=== PATIENT | female | born 1980 | race Two or more races ===

== ENCOUNTER 2018-05-18 12:21 | Emergency (ER) | payer BC, OTHER ==
[~2018-05-18] VITALS: Ht 147.3 cm; Wt 47.0 kg
[~2018-05-18 12:21] MED LIST: DOCU240C31 PO; HYDR-3240 PO; IBUP-1222 PO; No meds per pt.; PAIN MEDICATION PO; [UNRECOGNIZED DRUG - CODE] PO
[2018-05-18] MEDS ORDERED: METHOCARBAMOL 750 MG TABLET ONE (13:55)
[2018-05-18] MEDS ORDERED: KETOROLAC 30 MG/1 ML ONE (13:55)
[2018-05-18] MEDS ORDERED: METHOCARBAMOL 750 MG TABLET PO ONE (14:00)
[2018-05-18] MEDS ORDERED: KETOROLAC 30 MG/1 ML IM ONE (14:00)
[2018-05-18 14:37] VITALS: BP 120/69
== END 2018-05-18 15:10 | disposition home or self-care (01) ==
LOC: ED 14:58
DX: S39.012A Strain of muscle, fascia and tendon of lower back, initial encounter (principal); V49.09XA Driver injured in collision with other motor vehicles in nontraffic accident, initial encounter; Y93.89 Activity, other specified; Y92.89 Other specified places as the place of occurrence of the external cause; Y99.8 Other external cause status
CPT/HCPCS: 72072; 72110; 96372; 99283; J1885

== ENCOUNTER 2020-08-21 09:37 | Inpatient (IN) | payer BC ==
[~2020-08-21] VITALS: Ht 147.3 cm; Wt 48.6 kg
[~2020-08-21 09:37] MED LIST changes: +HYDR-2214 PO; -HYDR-3240 PO
--- NOTE | 2020-08-21 10:21 | NUR ---
BP CUFF, PULSE OX IN PLACE. IV PLACED BY MEDIC STUDENT, LABS INCLUDING BC X 1 DRAWN WITH START. PT REPORTS OF COUGH, FEVER, N/V, LLQ ABD PAIN FOR THREE WEEKS. TESTED FOR FLU AND COVID ON MON, NEG FLU RESULT AND NO COVID RESULT YET. ISO CART PLACED AT DOORWAY. PT REPORTS TWO COVID VACCINES, WITH LAST 07/20 AND SX DEVELOPING DAYS AFTERWARDS.
[2020-08-21] MEDS ORDERED: MORPHINE SULFATE 4 MG/ML, 1ML IVPush PRN ×2 (10:30→11:00)
[2020-08-21] MEDS ORDERED: ACETAMINOPHEN 500 MG TABLET PO ONE (10:30)
[2020-08-21] MEDS ORDERED: MORPHINE SULFATE 4 MG/ML, 1ML ONE (10:36)
[2020-08-21] MEDS ORDERED: ACETAMINOPHEN 500 MG TABLET ONE (10:36)
[2020-08-21] MEDS ORDERED: ONDANSETRON 2MG/ML, 2ML ONE ×2 (10:36→14:36)
--- NOTE | 2020-08-21 10:44 | NUR ---
PT MEDICATED PER ERP ORDER FOR N/V, LLQ ABD PAIN. NS BOLUS INFUSING. PT AWARE OF NEED FOR UA, URINE CUP PROVIDED, PT WITH CALL LIGHT. LAB IN TO DRAW.
[2020-08-21] MEDS ORDERED: SODIUM CHLORIDE 0.9% 1,000ML IVBOLUS ONE (11:00)
[2020-08-21 11:11] LABS: BASOPHILS % (AUTO) 0 % (0-1); EOSINOPHILS % (AUTO) 1 % (1-7); LYMPHOCYTES % (AUTO) 8 % (22-44); MEAN CORPUSCULAR HGB CONC 33.3 g/dL (32.4-35.8); MEAN PLATELET VOLUME 8.8 fL (7.4-10.4); MONOCYTES % (AUTO) 9 % (2-9); NEUTROPHILS % (AUTO) 82 % (42-75); PLATELET COUNT 275 x10^3/uL (130-400); RED BLOOD COUNT 4.04 x10^6/uL (3.82-5.3); RED CELL DISTRIBUTION WIDTH 12.9 % (9.6-15.2)
[2020-08-21 11:21] LABS: ANION GAP 7 mmol/L (5-15); CHLORIDE 103 mmol/L (98-107)
[2020-08-21 11:25] LABS: ALANINE AMINOTRANSFERASE 65 U/L (12-78); ALKALINE PHOSPHATASE 283 U/L (45-117); BILIRUBIN,TOTAL 0.7 mg/dL (0.2-1.0); CREATININE 1.25 mg/dL (0.55-1.02); TOTAL PROTEIN 8.2 g/dL (6.4-8.2)
[2020-08-21 11:30] LABS: MD SCAN
--- NOTE | 2020-08-21 11:40 | NUR ---
BREAK RN: PT IN CT.
[2020-08-21] MEDS ORDERED: OMNIPAQUE 350 MG/ML, 100ML BOTTLE ONE (11:47)
[2020-08-21 11:49] LABS: MICROSCOPIC AUTO
--- NOTE | 2020-08-21 12:54 | NUR ---
ROCEPHIN INFUSING PER ERP ORDER. PT STATES PAIN TOLERABLE, DECLINES PAIN MEDS AT THIS TIME. CALL LIGHT WITHIN REACH.
[2020-08-21] MEDS ORDERED: CEFTRIAXONE 1,000 MG in DEXTROSE 5% 50 ML IVPB ONE ×2 (13:00→18:30)
[2020-08-21] MEDS ORDERED: LIDOCAINE-MPF 2% ,5ML ONE (13:03)
[2020-08-21] MEDS ORDERED: FENTANYL PF 100 MCG/2ML ONE (13:05)
[2020-08-21] MEDS ORDERED: MIDAZOLAM 1 MG/ML, 2ML ONE (13:05)
[2020-08-21] MEDS ORDERED: OMNIPAQUE 350 MG/ML, 50 ML BOTTLE ONE (13:13)
[2020-08-21] MEDS ORDERED: LABETALOL 5MG/ML, 20ML IV PRN (13:30)
[2020-08-21] MEDS ORDERED: hydrALAzine 20 MG/ML, 1ML IV PRN (13:30)
[2020-08-21] MEDS ORDERED: FENTANYL PF 100 MCG/2ML IV PRN (13:30)
[2020-08-21] MEDS ORDERED: ONDANSETRON 2MG/ML, 2ML IVPush PRN ×2 (13:30→18:30)
[2020-08-21] MEDS ORDERED: EPHEDRINE 50 MG/ML, 1ML IVPush PRN (13:30)
[2020-08-21] MEDS ORDERED: ACETAMINOPHEN 325 MG TABLET PO PRN ×2 (13:30→18:30)
[2020-08-21] MEDS ORDERED: OXYcodone 5 MG/5 ML ORAL.SOL UDC PO PRN (13:30)
[2020-08-21] MEDS ORDERED: HYDROmorphone 1 MG/ML, 1ML INJ IVPush PRN (13:30)
[2020-08-21] MEDS ORDERED: PROMETHAZINE 25 MG/ML, 1ML IVPush PRN (13:30)
--- NOTE | 2020-08-21 13:31 | NUR ---
REPORT TO OR. RAPID COVID ORDERED/COLLECTED/WALKED TO LAB.
[2020-08-21] MEDS ORDERED: CHLORHEXIDINE 15 ML UDC PO ONE (14:00)
[2020-08-21] MEDS ORDERED: CHLORHEXIDINE 15 ML UDC ONE (14:02)
[2020-08-21] MEDS ORDERED: DEXAMETHASONE 4 MG/ML, 1ML ONE ×2 (14:36)
[2020-08-21] MEDS ORDERED: PROPOFOL 10 MG/ML, 20ML ONE (14:36)
[2020-08-21] MEDS ORDERED: SUCCINYLCHOLINE 20 MG/ML, 10ML ONE (14:36)
[2020-08-21] MEDS ORDERED: OMNIPAQUE 350 MG/ML, 50 ML BOTTLE IV ONE (14:40)
[2020-08-21 16:30] VITALS: BP 102/66
[2020-08-21] MEDS ORDERED: ONDANSETRON ODT 4 MG PO PRN (18:30)
[2020-08-21] MEDS ORDERED: DOCUSATE 100 MG CAPSULE PO PRN (18:30)
[2020-08-21] MEDS ORDERED: BISACODYL 10 MG SUPP PR PRN (18:30)
[2020-08-21] MEDS ORDERED: POLYETHYLENE GLYCOL 17 GM PACKET PO PRN (18:30)
[2020-08-21] MEDS ORDERED: morphine SULFATE 10 MG/ML, 1ML IVPush PRN (18:30)
[2020-08-21] MEDS: SODIUM CHLORIDE 0.9% 1,000 ML IV SCH ×2 (18:55→23:43)
[2020-08-21 19:00] LABS: MICROSCOPIC INDICATED
[2020-08-21 19:26] VITALS: BP 124/63
[2020-08-21] MEDS ORDERED: MELATONIN 5 MG TABLET PO PRN (21:00)
[2020-08-21] MEDS: FAMOTIDINE 20 MG TABLET PO SCH (22:21)
[2020-08-21] MEDS: OXYcodone/APAP 5/325MG TABLET PO PRN (22:21)
[2020-08-22 00:34] VITALS: BP 94/52
[2020-08-22 04:14] VITALS: BP 95/58
[2020-08-22 04:41] LABS: ALANINE AMINOTRANSFERASE 45 U/L (12-78); ALBUMIN 2.2 g/dL (3.4-5.0); ANION GAP 6 mmol/L (5-15); BASOPHILS % (AUTO) 0 % (0-1); CALCIUM 7.7 mg/dL (8.5-10.1); CHLORIDE 111 mmol/L (98-107); EOSINOPHILS % (AUTO) 0 % (1-7); LYMPHOCYTES % (AUTO) 7 % (22-44); MD NO; MEAN CORPUSCULAR HEMOGLOBIN 28.6 pg (27.0-34.8); MONOCYTES % (AUTO) 9 % (2-9); NEUTROPHILS % (AUTO) 84 % (42-75); PLATELET COUNT 185 x10^3/uL (130-400); RED BLOOD COUNT 3.25 x10^6/uL (3.82-5.3); RED CELL DISTRIBUTION WIDTH 12.7 % (9.6-15.2)
[2020-08-22 04:52] LABS: ALKALINE PHOSPHATASE 201 U/L (45-117); BILIRUBIN,TOTAL 0.2 mg/dL (0.2-1.0); CREATININE 0.84 mg/dL (0.55-1.02); TOTAL PROTEIN 6.2 g/dL (6.4-8.2)
[2020-08-22] MEDS: OXYcodone/APAP 5/325MG TABLET PO PRN ×2 (05:38→17:07)
[2020-08-22 08:01] VITALS: BP 117/73
[2020-08-22] MEDS: FAMOTIDINE 20 MG TABLET PO SCH ×2 (08:35→21:52)
[2020-08-22] MEDS: SENNA/DOCUSATE TABLET PO SCH (08:35)
[2020-08-22] MEDS: CEFTRIAXONE 2 GM in DEXTROSE 5% 50 ML IVPB SCH (12:34)
[2020-08-22 13:16] VITALS: BP 98/58
[2020-08-22 21:41] VITALS: BP 97/58
[2020-08-23 03:03] VITALS: BP 106/70
[2020-08-23 06:11] LABS: BASOPHILS % (AUTO) 1 % (0-1); EOSINOPHILS % (AUTO) 1 % (1-7); LYMPHOCYTES % (AUTO) 14 % (22-44); MEAN CORPUSCULAR HEMOGLOBIN 28.1 pg (27.0-34.8); MEAN CORPUSCULAR HGB CONC 33.8 g/dL (32.4-35.8); MEAN PLATELET VOLUME 8.8 fL (7.4-10.4); MONOCYTES % (AUTO) 7 % (2-9); NEUTROPHILS % (AUTO) 78 % (42-75); PLATELET COUNT 203 x10^3/uL (130-400); RED BLOOD COUNT 3.29 x10^6/uL (3.82-5.3); RED CELL DISTRIBUTION WIDTH 13.1 % (9.6-15.2)
[2020-08-23 06:18] LABS: MD NO
[2020-08-23 06:59] LABS: ANION GAP 4 mmol/L (5-15); CALCIUM 7.9 mg/dL (8.5-10.1); CHLORIDE 111 mmol/L (98-107); CREATININE 0.88 mg/dL (0.55-1.02)
[2020-08-23 07:52] VITALS: BP 101/63
[2020-08-23] MEDS: SENNA/DOCUSATE TABLET PO SCH (08:48)
[2020-08-23] MEDS: FAMOTIDINE 20 MG TABLET PO SCH ×2 (08:48→20:08)
[2020-08-23] MEDS: CEFTRIAXONE 2 GM in DEXTROSE 5% 50 ML IVPB SCH ×2 (13:01→13:21)
[2020-08-23 14:04] VITALS: BP 109/66
[2020-08-23 18:35] VITALS: BP 99/53
[2020-08-24 02:02] VITALS: BP 96/57
[2020-08-24 07:28] VITALS: BP 120/70
[2020-08-24] MEDS: SENNA/DOCUSATE TABLET PO SCH (08:48)
[2020-08-24] MEDS: FAMOTIDINE 20 MG TABLET PO SCH (08:48)
[2020-08-24] MEDS ORDERED: TAMS-11 PO (11:35)
[2020-08-24] MEDS ORDERED: OXYB5TAB10 PO (11:35)
[2020-08-24] MEDS ORDERED: CEFD300C37 PO (11:35)
[2020-08-24] MEDS ORDERED: ACYC-40 PO (11:36)
[2020-08-24] MEDS: CEFTRIAXONE 2 GM in DEXTROSE 5% 50 ML IVPB SCH (12:07)
[2020-08-24 13:03] VITALS: BP 112/66
== END 2020-08-24 13:22 | disposition home or self-care (01) | DRG 853 ==
LOC: OR 13:47 → ORIP 14:18 → 4NE 16:13 → DCLOUNGE 08-24 13:15
PROVIDERS: ADMIT Internal Medicine; ATTEND Internal Medicine
PROC: BT1F1ZZ Fluoroscopy of Left Kidney, Ureter and Bladder using Low Osmolar Contrast (ICD-10-PCS; 2020-08-21)
PROC: 0T9B70Z Drainage of Bladder with Drainage Device, Via Natural or Artificial Opening (ICD-10-PCS; 2020-08-21)
PROC: 0T778DZ Dilation of Left Ureter with Intraluminal Device, Via Natural or Artificial Opening Endoscopic (ICD-10-PCS; principal; 2020-08-21 14:00)
DX: A41.9 Sepsis, unspecified organism (principal); N17.0 Acute kidney failure with tubular necrosis; N13.6 Pyonephrosis; B00.1 Herpesviral vesicular dermatitis; D64.9 Anemia, unspecified; E03.9 Hypothyroidism, unspecified; Z87.442 Personal history of urinary calculi; Z90.710 Acquired absence of both cervix and uterus; Z98.891 History of uterine scar from previous surgery; Z20.822 Contact with and (suspected) exposure to COVID-19; Z88.0 Allergy status to penicillin
CPT/HCPCS: 36415; 74420; 84145; 96361; 96374; 96375; 99285; J3490; 71045; 72192; 74160; 80048; 80053; 81001; 83605; 83690; 83735; 84100; 84443; 85025; 87040; 87086; 87635; 93005; G0378; J0696; J1100; J2250; J2405; J2704; J3010; Q9967; J0330; J2270; J7030

== ENCOUNTER 2020-10-06 11:40 | Day surgery (SDC) | payer BC ==
[2020-10-05 12:15] LABS: BASOPHILS % (AUTO) 0 % (0-1); EOSINOPHILS % (AUTO) 3 % (1-7); LYMPHOCYTES % (AUTO) 32 % (22-44); MEAN CORPUSCULAR HEMOGLOBIN 28.5 pg (27.0-34.8); MEAN CORPUSCULAR HGB CONC 33.4 g/dL (32.4-35.8); MEAN PLATELET VOLUME 8.3 fL (7.4-10.4); MONOCYTES % (AUTO) 7 % (2-9); NEUTROPHILS % (AUTO) 58 % (42-75); PLATELET COUNT 237 x10^3/uL (130-400); RED BLOOD COUNT 3.83 x10^6/uL (3.82-5.3); RED CELL DISTRIBUTION WIDTH 13.6 % (9.6-15.2)
[2020-10-05 12:20] LABS: MICROSCOPIC INDICATED
[2020-10-05 12:22] LABS: CALCIUM 8.8 mg/dL (8.5-10.1); CREATININE 0.78 mg/dL (0.55-1.02); INTERNATIONAL NORMALIZED RATIO 1.08 (0.93-1.1); PROTHROMBIN TIME 11.5 Seconds (9.6-11.5)
[2020-10-05 12:35] LABS: ANION GAP 4 mmol/L (5-15); CHLORIDE 108 mmol/L (98-107)
[~2020-10-06] VITALS: Ht 149.9 cm; Wt 40.1 kg
[~2020-10-06 11:40] MED LIST changes: +ACYC-40 PO; +CEFD300C37 PO; +OXYB5TAB10 PO; +PHEN-583 PO; +TAMS-11 PO
[2020-10-06 12:13] VITALS: BP 114/70
[2020-10-06] MEDS ORDERED: CHLORHEXIDINE 15 ML UDC ONE (12:20)
[2020-10-06] MEDS ORDERED: CHLORHEXIDINE 15 ML UDC PO ONE (12:30)
[2020-10-06] MEDS ORDERED: LACTATED RINGERS 1,000 ML IV SCH (12:30)
[2020-10-06] MEDS ORDERED: OMNIPAQUE 350 MG/ML, 50 ML BOTTLE ONE (15:41)
[2020-10-06] MEDS ORDERED: CEFAZOLIN 1,000 MG ONE (15:43)
[2020-10-06] MEDS ORDERED: DEXAMETHASONE 4 MG/ML, 1ML ONE (15:43)
[2020-10-06] MEDS ORDERED: ONDANSETRON 2MG/ML, 2ML ONE (15:43)
[2020-10-06] MEDS ORDERED: PROPOFOL 10 MG/ML, 20ML ONE (15:43)
[2020-10-06] MEDS ORDERED: SUCCINYLCHOLINE 20 MG/ML, 10ML ONE (15:43)
[2020-10-06] MEDS ORDERED: ROCURONIUM 10 MG/ML,10ML ONE (15:43)
[2020-10-06] MEDS ORDERED: MIDAZOLAM 1 MG/ML, 2ML ONE (15:46)
[2020-10-06] MEDS ORDERED: FENTANYL PF 250 MCG/5ML ONE (15:46)
[2020-10-06] MEDS ORDERED: LABETALOL 5MG/ML, 20ML IV PRN (16:30)
[2020-10-06] MEDS ORDERED: PROMETHAZINE 25 MG/ML, 1ML IV PRN (16:30)
[2020-10-06] MEDS ORDERED: ONDANSETRON 2MG/ML, 2ML IVPush PRN (16:30)
[2020-10-06] MEDS ORDERED: METOCLOPRAMIDE 5 MG/ML, 2ML IV PRN (16:30)
[2020-10-06] MEDS ORDERED: MEPERIDINE/PF 25MG/0.5ML IVPush PRN (16:30)
[2020-10-06] MEDS ORDERED: DIAZEPAM 5 MG/ML, 2ML IV PRN ×2 (16:30)
[2020-10-06] MEDS ORDERED: hydrALAzine 20 MG/ML, 1ML IV PRN (16:30)
[2020-10-06] MEDS ORDERED: ALBUTEROL SULFATE 2.5 MG/3 ML NPPB PRN (16:30)
[2020-10-06] MEDS ORDERED: KETOROLAC 30 MG/1 ML IV PRN (16:30)
[2020-10-06] MEDS ORDERED: HYDROmorphone 1 MG/ML, 1ML INJ IV PRN (16:30)
[2020-10-06] MEDS ORDERED: FENTANYL PF 100 MCG/2ML IV PRN (16:30)
[2020-10-06] MEDS ORDERED: FENTANYL PF 100 MCG/2ML ONE (16:42)
[2020-10-06] MEDS ORDERED: OXYcodone 5 MG/5 ML ORAL.SOL UDC ONE ×2 (16:42→17:33)
[2020-10-06] MEDS: OXYcodone 5 MG/5 ML ORAL.SOL UDC PO PRN ×2 (16:46→17:38)
[2020-10-06] MEDS ORDERED: KETOROLAC 30 MG/1 ML ONE (16:48)
== END 2020-10-06 19:15 | disposition home or self-care (01) ==
LOC: OUT 11:40
PROVIDERS: ATTEND Urology
DX: N20.1 Calculus of ureter (principal); R39.15 Urgency of urination; Z20.822 Contact with and (suspected) exposure to COVID-19; Z79.01 Long term (current) use of anticoagulants; Z79.899 Other long term (current) drug therapy; Z87.440 Personal history of urinary (tract) infections
CPT/HCPCS: 36415; 52353; 74018; 80048; 81001; 82360; 85025; 85610; 87077; 87086; 87186; 88300; C1758; J0330; J0690; J1100; J1885; J2250; J2405; J2704; J3010; J7120; U0003; U0005; 76000; Q9967